=== PATIENT | male | born 1995 | race Caucasian/White ===

== ENCOUNTER 2016-10-08 00:43 | Emergency (ER) | payer BC, OTHER ==
[~2016-10-08] VITALS: Ht 170.2 cm; Wt 103.5 kg
[~2016-10-08 00:43] MED LIST: BACTDS PO; CEPH-443 PO; HYDR-3498 PO; IBUP400T22 PO
[2016-10-08 00:47] VITALS: Ht 170.2 cm; Wt 103.5 kg
[2016-10-08] MEDS ORDERED: CPR3OO3.5 BOTH EYES (04:10)
--- NOTE | 2016-10-08 04:48 | ERD ---
ER Documentation Chief Complaint Date/Time DATE: 10/08/16 TIME: 04:46 Chief Complaint left eye pain s/p contact removal HPI This patient is a 21-year-old male presenting to the emergency department with complaints of bilateral eye redness, worse on the left which occurred earlier after removing his contact. He also reports mucus discharge which began earlier today. Symptoms are worsening. Aggravating factors include wearing his contacts. He denies vision changes, feeling of foreign body, fevers, chills , or other symptoms. ROS All systems reviewed and are negative except as per history of present illness. Medications Home Meds Active Scripts Ciprofloxacin Opht* (Ciloxan*) 0.3%-3.5 Opht Oint, 1 APPLIC BOTH EYES TID for 7 Days, #1 BOTTLE Prov:MARIA GUADALUPE HERNANDEZ PA-C 10/08/16 Hydrocodone Bit-Acetaminophen* ([place]*) 5-325 Mg Tab, 1 TAB PO Q8 Y for PAIN, # 7 TAB Prov:SADEORAKO 11/10/14 Ibuprofen* (Motrin*) 400 Mg Tab, 400 MG PO Q6, #20 TAB Prov:SADEORA,KO 11/10/14 Sulfamethoxazole-Trimethoprim* (Bactrim* DS) 800-160 Mg Tab, 1 TAB PO BID for 7 Days, TAB Prov:SADEORAKO 11/10/14 Cephalexin* (Keflex*) 500 Mg Capsule, 500 MG PO QID for 7 Days, CAP Prov:SADEORA,KO 11/10/14 Allergies Allergies: Coded Allergies: No Known Allergy (Unverified , 11/12/14) PMhx/Soc Medical and Surgical Hx: pt denies Medical Hx, pt denies Surgical Hx History of Surgery: No Anesthesia Reaction: No Hx Neurological Disorder: No Hx Respiratory Disorders: No Hx Cardiac Disorders: No Hx Psychiatric Problems: No Hx Miscellaneous Medical Probl: No Hx Alcohol Use: No Hx Substance Use: No Hx Tobacco Use: No Physical Exam Vitals Vital Signs Date Time Temp Pulse Resp B/P Pulse Ox O2 Delivery O2 Flow Rate FiO2 10/08/16 00:47 97.5 85 18 119/70 97 Physical Exam Const: Nontoxic, well-appearing male in no acute distress. Head: Atraumatic Eyes: Bilateral conjunctival injection. There is mucus present actively draining from the left eye. EOMs are intact bilaterally. There is no periorbital edema or erythema noted bilaterally. ENT: Normal External Ears, Nose and Mouth. Neck: Full range of motion..~ No meningismus. Skin: No petechiae or rashes Back: No midline or flank tenderness Ext: No cyanosis, or edema Neur: Awake and alert Psych: Normal Mood and Affect Procedures/MDM 21-year-old male presents to the emergency department with complaints of bilateral conjunctival injection and mucus draining from the left eye. History and clinical examination is consistent with conjunctivitis. I have low suspicion for corneal ulcer, foreign body, periorbital cellulitis, sepsis, or other emergent conditions. Patient is stable for outpatient management with a prescription for ciprofloxacin ophthalmic drops. He was advised to have close follow-up with the [facility] and his primary care physician. He was advised to refrain from contact lens usage for at least 1 week. Strict ER return precautions were discussed. Departure Diagnosis: Primary Impression: Conjunctivitis Condition: Fair Patient Instructions: Conjunctivitis Caused by Infection Referrals: [facility] Hours: Wed - Wed 9:00 AM - 5:00 PM Additional Instructions: Refrain from wearing contacts for 1 week. Make follow-up appointment with the [facility]. Follow up with your PCP within the next 1-3 days for a repeat evaluation. If you require a referral to a specialist, your Primary Care Provider may be able to provide this for you. In most patient cases, a referral is not required. If you have further questions regarding this matter, please ask your Primary Care Provider. Return the the emergency department immediately if symptoms worsen or change. If you have any questions regarding medications, ask your pharmacist or us before you leave. If any adverse reactions, occur while taking your medications, discontinue the treatment and return to the emergency department immediately. If any new or worsening symptoms, uncontrolled fevers, or other unexplained symptoms occur, return to the emergency department immediately. Take your medications as directed, and complete the entire course of treatment. MARIA GUADALUPE HERNANDEZ PA-C Oct 08, 2016 04:48
== END 2016-10-08 04:37 | disposition home or self-care (01) ==
LOC: FTE 00:43
DX: H10.9 Unspecified conjunctivitis (principal)
CPT/HCPCS: 99283

== ENCOUNTER 2018-07-16 08:12 | Emergency (ER) | payer BC ==
[~2018-07-16] VITALS: Ht 167.6 cm; Wt 100.0 kg
[~2018-07-16 08:12] MED LIST changes: +CPR3OO3.5 BOTH EYES; +IBUP-1561 PO; -IBUP400T22 PO
[2018-07-16 08:14] VITALS: BP 153/75; PULSE 58; RESP 17; Ht 167.6 cm; Wt 100.0 kg
[2018-07-16] MEDS ORDERED: MUPI15CR9 TOP (08:58)
[2018-07-16] MEDS ORDERED: SULF1TAB31 PO (08:58)
--- NOTE | 2018-07-16 09:02 | ERD ---
ER Documentation Chief Complaint Chief Complaint ABCESS TO CHIN CAUSING JAW PAIN. HPI 23-year-old otherwise healthy male presents to the emergency department complaining of a red painful bump on his chin. Patient states that he has had that for approximately 2-3 days now. He tried to pop it, but had no pus release d. He states that since then, he has been having increasing pain and redness in the left lower chin part. He reports no fevers or chills. ROS All systems reviewed and are negative except as per history of present illness. Medications Home Meds Active Scripts Mupirocin Calcium* (Mupirocin*) 2% - 15 Gram Cream..g., 1 APPLIC TOP TID, #1 TUB Prov:MOIRA GRAVES 07/16/18 Sulfamethoxazole/Trimethoprim* (Bactrim Ds* Tablet) 1 Each Tablet, 1 TAB PO BID, #14 TAB Prov:MOIRA GRAVES 07/16/18 Ciprofloxacin Opht* (Ciloxan*) 0.3%-3.5 Opht Oint, 1 APPLIC BOTH EYES TID for 7 Days, #1 BOTTLE Prov:MARIA GUADALUPE HERNANDEZ PA-C 10/08/16 Hydrocodone Bit-Acetaminophen* ([place]*) 5-325 Mg Tab, 1 TAB PO Q8 PRN for PAIN, #7 TAB Prov:KO HARRIS 11/10/14 Ibuprofen* (Motrin*) 400 Mg Tab, 400 MG PO Q6, #20 TAB Prov:BHARATHEKO CASTRO 11/10/14 Sulfamethoxazole-Trimethoprim* (Bactrim* DS) 800-160 Mg Tab, 1 TAB PO BID for 7 Days, TAB Prov:KO HARRIS 11/10/14 Cephalexin* (Keflex*) 500 Mg Capsule, 500 MG PO QID for 7 Days, CAP Prov:BHARATHEKO CASTRO 11/10/14 Allergies Allergies: Coded Allergies: No Known Allergy (Unverified , 11/12/14) PMhx/Soc History of Surgery: No Anesthesia Reaction: No Hx Neurological Disorder: No Hx Respiratory Disorders: No Hx Cardiac Disorders: No Hx Psychiatric Problems: No Hx Miscellaneous Medical Probl: No Hx Alcohol Use: No Hx Substance Use: No Hx Tobacco Use: No Physical Exam Vitals Vital Signs Date Temp Pulse Resp B/P (MAP) Pulse Ox O2 O2 Flow FiO2 Time Delivery Rate 07/16/18 97.6 58 17 153/75 99 08:14 (101) Physical Exam General: well developed, well nourished, in no distress. Neuro: Normal speech, gait, balance Skin: Patient has an MRSA type lesion on the left lower part of his chin without definitive abscess or fluctuance. Minimal cellulitic changes with no significant diffuse facial cellulitis noted. The infection does not appear to extend into the floor of the mouth. Neck: Supple without significant lymphadenopathy, swelling or stridor. Procedures/MDM Patient was taken to a room, seen and examined Medical decision makin-year-old male presents with an isolated facial abscess likely secondary to MRSA. Patient has no indications for I&D at this current time. He has no systemic concerns including no evidence of fever. Patient is overall clinically well and seems appropriate for outpatient supportive care. Departure Diagnosis: Primary Impression: MRSA (methicillin resistant Staphylococcus aureus) Condition: Stable Patient Instructions: Mrsa Skin Infection, Suspected Or Confirmed Additional Instructions: Return here for any worsening or if not better in the next 5 days MOIRA GRAVES Jul 16, 2018 09:02
== END 2018-07-16 09:05 | disposition home or self-care (01) ==
LOC: FTE 08:12
DX: A49.02 Methicillin resistant Staphylococcus aureus infection, unspecified site (principal)
CPT/HCPCS: 99283

== ENCOUNTER 2018-07-18 08:38 | Emergency (ER) | payer BC ==
[~2018-07-18] VITALS: Wt 100.0 kg
[~2018-07-18 08:38] MED LIST changes: +MUPI15CR9 TOP; +SULF1TAB31 PO
[2018-07-18 08:42] VITALS: BP 140/81; PULSE 58; RESP 18
[2018-07-18] MEDS ORDERED: LIDOCAINE 1% (MDV) 10 ML INJ INJ STA (09:32)
[2018-07-18] MEDS ORDERED: LIDOCAINE 1% (MPF) 5 ML VIAL INJ ONE (10:00)
--- NOTE | 2018-07-18 10:12 | ERD ---
ER Documentation Chief Complaint Chief Complaint abscess to lower chin . no releif with abx. drainage noted. HPI This is a 23-year-old male with a nonsignificant past medical history presents ED with complaints of abscess to lower chin that is been present for the past 4- 5 days. Patient was seen here 2 days ago and was prescribed antibiotics. Patient states that he has been taking antibiotics as prescribed. Patient states that the painful area on his chin is not improving. Admits to redness, pain, purulent drainage. Denies fever chills. ROS All systems reviewed and are negative except as per history of present illness. Medications Home Meds Active Scripts Mupirocin Calcium* (Mupirocin*) 2% - 15 Gram Cream..g., 1 APPLIC TOP TID, #1 TUB Prov:MOIRA GRAVES 07/16/18 Sulfamethoxazole/Trimethoprim* (Bactrim Ds* Tablet) 1 Each Tablet, 1 TAB PO BID, #14 TAB Prov:MOIRA GRAVES 07/16/18 Ciprofloxacin Opht* (Ciloxan*) 0.3%-3.5 Opht Oint, 1 APPLIC BOTH EYES TID for 7 Days, #1 BOTTLE Prov:MARIA GUADALUPE HERNANDEZ PA-C 10/08/16 Hydrocodone Bit-Acetaminophen* ([place]*) 5-325 Mg Tab, 1 TAB PO Q8 PRN for PAIN, #7 TAB Prov:BHARATHEKO CASTRO 11/10/14 Ibuprofen* (Motrin*) 400 Mg Tab, 400 MG PO Q6, #20 TAB Prov:BHARATHEKO CASTRO 11/10/14 Sulfamethoxazole-Trimethoprim* (Bactrim* DS) 800-160 Mg Tab, 1 TAB PO BID for 7 Days, TAB Prov:BHARATHEORAKO 11/10/14 Cephalexin* (Keflex*) 500 Mg Capsule, 500 MG PO QID for 7 Days, CAP Prov:BHARATHEORAKO 11/10/14 Allergies Allergies: Coded Allergies: No Known Allergy (Unverified , 11/12/14) PMhx/Soc History of Surgery: No Anesthesia Reaction: No Hx Neurological Disorder: No Hx Respiratory Disorders: No Hx Cardiac Disorders: No Hx Psychiatric Problems: No Hx Miscellaneous Medical Probl: No Hx Alcohol Use: Yes (social) Hx Substance Use: No Hx Tobacco Use: No Smoking Status: Never smoker Fmx Family History: No diabetes Physical Exam Vitals Vital Signs Date Temp Pulse Resp B/P (MAP) Pulse Ox O2 O2 Flow FiO2 Time Delivery Rate 07/18/18 98.8 58 18 140/81 98 08:42 (100) Physical Exam Physical Exam Vitals signs: Reviewed by me. General: Well developed, well nourished, in no acute distress. Patient is awake and alert. Head: Normocephalic, atraumatic. Eyes: Normal conjunctiva, Pupils PERRLA, EOM intact grossly ENT: Pharynx is clear, Moist mucous membranes, external ears, nose and mouth normal Neck: Supple, no masses, lymphadenopathy or JVD, no swelling or stridor Respiratory: Clear to auscultation bilaterally with no wheezing, rhonchi, rales, no distress Cardiovascular: RRR, no murmurs, rubs, or gallops Neurologic: Alert and oriented, moving all extremities, normal speech, no focal weakness, no cerebellar signs. Normal mentation Skin: warm and dry, No rash Patient has a MRSA type lesion on his chin with increased redness, mild swelling, tenderness palpation. With purulent drainage expressed, the infection does not appear to extend into the floor of his mouth, no lymphatic streaking Psych: Normal mood Results 24 hrs Current Medications Medications Dose Sig/Rebecca Start Time Status Last (Trade) Ordered Route PRN Stop Time Admin Dose Reason Admin Lidocaine 10 ml ONCE STAT 07/18/18 DC HCl INJ 09:32 (Lidocaine 07/18/18 09:33 1% (Mdv) 10 ml) Lidocaine 10 ml ONCE ONCE 07/18/18 DC (Xylocaine INJ 10:00 1% (Mpf)) 07/18/18 10:01 Procedures/MDM PROCEDURES: Abscess Incision and Drainage with irrigation by me: Location: chin Anesthesia: 1% lidocaine Technique: Irrigated. Disrupted loculations w/ instrumentation Packing: None Complications: Neurovascularly intact post procedure 48 hour wound check. Scar minimization instructions given. Patient's skin symptoms have stabilized while they have been evaluated in the department and are appropriate for outpatient care and work up. Exam and w/u not consistent w/ sepsis, deep space infection, or foreign body. ER COURSE: The patient was stable throughout ED course. I kept the patient and/or family informed of laboratory and diagnostic imaging results throughout the emergency room course. The patient was promptly evaluated and a treatment plan was devised based on H&P and other data. This plan was discussed with the patient who agreed and had no further questions or concerns prior to discharge. MEDICAL DECISION MAKING: This is a 23-year-old male who presents ED with abscess to her chin that is been present for the past 4-5 days. Patient was seen here 2 days ago and prescribed Bactrim. Patient has not seen relief with using antibiotics. Physical examination is remarkable for a small facial abscess likely due to MRSA. Incision and draiange was performed in the ED without complication. Patient was advised to use a warm compress and continue antibiotics as prescribed. There is no lymphatic streaking. Low suspicion for sepsis, deep space infection, compartment syndrome, cellulitis, neurovascular injury, tendon injury. Patient's vitals are stable and pt can be managed with close outpatient follow-up. Advised patient follow-up with primary care in the next 48 hours for wound check. Advised to return to ED with any worsening symptoms. DISPOSITION PLAN: We discussed follow up with the patient's primary care doctor within 24 to 48 hours. Patient counseled regarding my diagnostic impression and care plan. Prior to discharge all questions answered. Pt agrees with treatment plan and understands strict return precautions. Precautionary instructions provided including instructions to return to the ER if not improving or for any worsening or changing symptoms or concerns. SPECIALIST FOLLOW UP RECOMMENDED: None Patient has been advised to follow up with primary care in 1-2 days. Disclaimer: Inadvertent spelling and grammatical errors are likely due to EHR/dictation software use and do not reflect on the overall quality of patient care. Also, please note that the electronic time recorded on this note does not necessarily reflect the actual time of the patient encounter. Blood Pressure Assessment: Patient's blood pressure was elevated (>120/80) but appears stable without evidence of hypertension emergency or urgency. The patient was counseled about the risks of hypertension and urged to pursue outpatient monitoring and therapy within a week with their primary care phys jo. Departure Diagnosis: Primary Impression: Abscess of chin Additional Impression: Encounter for wound re-check Condition: Stable Patient Instructions: Abscess, Incision And Drainage Referrals: COMMUNITY CLINICS YOU HAVE RECEIVED A MEDICAL SCREENING EXAM AND THE RESULTS INDICATE THAT YOU DO NOT HAVE A CONDITION THAT REQUIRES URGENT TREATMENT IN THE EMERGENCY DEPARTMENT. FURTHER EVALUATION AND TREATMENT OF YOUR CONDITION CAN WAIT UNTIL YOU ARE SEEN IN YOUR DOCTORS OFFICE WITHIN THE NEXT 1-2 DAYS. IT IS YOUR RESPONSIBILITY TO MAKE AN APPOINTMENT FOR FOLOW-UP CARE. IF YOU HAVE A PRIMARY DOCTOR --you should call your primary doctor and schedule an appointment IF YOU DO NOT HAVE A PRIMARY DOCTOR YOU CAN CALL OUR PHYSICIAN REFERRAL HOTLINE AT IF YOU CAN NOT AFFORD TO SEE A PHYSICIAN YOU CAN CHOSE FROM THE FOLLOWING [facility] CL[facility]ICS [facility] [address] [facility] [address] [facility] [address] [facility] [address] [facility] [address] [facility] [address] Additional Instructions: Patient advised to return to the ED immediately for new or worsening symptoms. Patient advised to follow up with primary care provider in the next 24-48 hours. Patient verbalized understanding and agrees with treatment plan and course of action. If patient has no primary care they may follow up with one of the formerly [facility], [facility] clinics listed on the following page or one of the options listed below [facility] [address] [place] [address] or [facility] [id number] [place] [address] [address] [facility] [address] [place] [address] NETTIE CHARLES PA-C Jul 18, 2018 10:12
== END 2018-07-18 10:16 | disposition home or self-care (01) ==
LOC: FTE 08:38
DX: L02.01 Cutaneous abscess of face (principal)
CPT/HCPCS: 10060; 99283; Z7610